=== PATIENT | female | born 2000 | race African-American/Black ===

== ENCOUNTER 2021-06-02 18:28 | Inpatient (IN) | payer OTHER ==
[~2021-06-02] VITALS: Ht 162.6 cm; Wt 107.5 kg
[2021-06-02] MEDS ORDERED: METHYLPREDNISOLONE SOD SUCC 125 MG/2 ML VIAL IV STA (18:40)
[2021-06-02] MEDS ORDERED: IPRATROPIUM BROMIDE (0.02%) 0.5MG/2.5ML NEB HHN STA (18:40)
[2021-06-02] MEDS ORDERED: ALBUTEROL (0.083%) 2.5MG/3ML NEB HHN STA (18:40)
[2021-06-02] MEDS ORDERED: LEVOFLOXACIN 750MG PREMIX 150 ML IV STA (18:40)
[2021-06-02] MEDS ORDERED: VANCOMYCIN 1 G PREMIX 200 ML IV ONE (18:45)
[2021-06-02 19:37] LABS: BASOPHILS % 0.5 % (0.0-2.0); HEMATOCRIT. 39.2 % (36.0-48.0); HEMOGLOBIN. 12.8 g/dL (12.0-16.0); LYMPHOCYTES % 24.2 % (20.0-50.0); MEAN CORPUSCULAR VOLUME 64.2 fL (81.0-99.0); MEAN PLATELET VOLUME 8.9 fl (7.4-10.4); MONOCYTES % 11.4 % (2.0-8.0); NEUTROPHILS % 63.9 % (40.0-76.0); PLATELET 292 x1000/uL (130-400); RED BLOOD CELL COUNT 6.11 mill/uL (4.2-5.4); RED CELL DISTRIBUTION WIDTH 16.6 % (11.6-14.6)
[2021-06-02 19:43] LABS: CHLORIDE 101 mEq/L (98-107)
[2021-06-02] MEDS ORDERED: MORPHINE SULFATE 4 MG/ML CPJ (NOT FOR IM USE) IV ONE (20:00)
[2021-06-02 20:51] LABS: PLATELET ESTIMATE NORMAL
[2021-06-03] VITALS (7 sets, daily range): BP systolic 89–134; BP diastolic 58–80
[2021-06-03] MEDS ORDERED: HYDROCODONE/ACETAMINOPHEN 5/325MG TABLET PO PRN (00:45)
[2021-06-03] MEDS ORDERED: CLONIDINE 0.1MG TABLET PO PRN (00:45)
[2021-06-03] MEDS: ACETAMINOPHEN 325MG TABLET PO PRN (01:06)
[2021-06-03] MEDS: ALBUTEROL 6.7GM HFA INHALER ORI SCH ×5 (04:10→21:19)
[2021-06-03 07:14] LABS: BASOPHILS % 0.4 % (0.0-2.0); HEMATOCRIT. 34.5 % (36.0-48.0); HEMOGLOBIN. 11.2 g/dL (12.0-16.0); LYMPHOCYTES % 34.2 % (20.0-50.0); MEAN CORPUSCULAR HEMOGLOBIN 20.6 pg (28.0-32.0); MEAN CORPUSCULAR VOLUME 63.7 fL (81.0-99.0); MEAN PLATELET VOLUME 8.6 fl (7.4-10.4); MONOCYTES % 12.2 % (2.0-8.0); NEUTROPHILS % 53.2 % (40.0-76.0); PLATELET 374 x1000/uL (130-400); RED BLOOD CELL COUNT 5.42 mill/uL (4.2-5.4); RED CELL DISTRIBUTION WIDTH 16.8 % (11.6-14.6)
[2021-06-03 07:47] LABS: CHLORIDE 102 mEq/L (98-107)
[2021-06-03] MEDS ORDERED: NALOXONE HCL 0.4MG/ML VIAL IV PRN (08:45)
[2021-06-03] MEDS: ENOXAPARIN 30MG/0.3ML SYR SUBCUT SCH ×2 (09:43→21:18)
[2021-06-03] MEDS: BENZONATATE 100MG CAPSULE PO SCH ×2 (09:43→16:26)
[2021-06-03] MEDS: FAMOTIDINE 20MG TABLET PO SCH ×2 (09:43→16:26)
[2021-06-03] MEDS: DEXAMETHASONE 10 MG/ML VIAL IV SCH (09:44)
[2021-06-03] MEDS: CEFTRIAXONE 1,000 MG in DEXTROSE 5% WATER 50 ML IV SCH (09:44)
[2021-06-03] MEDS ORDERED: CEFTRIAXONE 1 G PREMIX 50 ML IV SCH (10:00)
[2021-06-03] MEDS: AZITHROMYCIN 500 MG in DEXT 5% WATER 250 ML IV SCH (10:34)
[2021-06-04] VITALS: BP 156/72
[2021-06-04] MEDS: ALBUTEROL 6.7GM HFA INHALER ORI SCH ×6 (00:32→21:15)
[2021-06-04 04:00] VITALS: BP 145/66
[2021-06-04 08:00] VITALS: BP 109/64
[2021-06-04] MEDS: CEFTRIAXONE 1,000 MG in DEXTROSE 5% WATER 50 ML IV SCH (08:08)
[2021-06-04] MEDS: ENOXAPARIN 30MG/0.3ML SYR SUBCUT SCH ×2 (08:09→21:15)
[2021-06-04] MEDS: DEXAMETHASONE 10 MG/ML VIAL IV SCH (08:09)
[2021-06-04] MEDS: BENZONATATE 100MG CAPSULE PO SCH ×2 (08:09→16:16)
[2021-06-04] MEDS: FAMOTIDINE 20MG TABLET PO SCH ×2 (08:09→16:16)
[2021-06-04] MEDS: AZITHROMYCIN 500 MG in DEXT 5% WATER 250 ML IV SCH (09:59)
[2021-06-04 12:00] VITALS: BP 114/66
[2021-06-04 16:00] VITALS: BP 120/74
[2021-06-04 20:00] VITALS: BP 121/47
[2021-06-05] MEDS: ALBUTEROL 6.7GM HFA INHALER ORI SCH ×6 (00:23→20:45)
[2021-06-05 00:28] VITALS: BP 107/50
[2021-06-05 04:00] VITALS: BP 100/46
[2021-06-05 08:00] VITALS: BP 99/50
[2021-06-05] MEDS: FAMOTIDINE 20MG TABLET PO SCH ×2 (08:33→17:46)
[2021-06-05] MEDS: CEFTRIAXONE 1,000 MG in DEXTROSE 5% WATER 50 ML IV SCH (08:33)
[2021-06-05] MEDS: DEXAMETHASONE 10 MG/ML VIAL IV SCH (08:33)
[2021-06-05] MEDS: AZITHROMYCIN 500 MG in DEXT 5% WATER 250 ML IV SCH (08:33)
[2021-06-05] MEDS: ENOXAPARIN 30MG/0.3ML SYR SUBCUT SCH ×2 (08:34→20:45)
[2021-06-05] MEDS: BENZONATATE 100MG CAPSULE PO SCH ×2 (10:53→17:46)
[2021-06-05 12:00] VITALS: BP 100/51
[2021-06-05] MEDS ORDERED: DEXTROSE 50% WATER 50ML SYRINGE IV PRN (15:45)
[2021-06-05 16:00] VITALS: BP 97/45
[2021-06-05] MEDS: BLOOD SUGAR DIAGNOSTIC STRIP TEST SCH ×2 (17:47→20:38)
[2021-06-05] MEDS: INSULIN LISPRO 100 UNITS/ML SUBCUT SCH ×2 (17:49→20:38)
[2021-06-05 20:00] VITALS: BP 107/77
[2021-06-05] MEDS: GUAIFENESIN 600MG ER TABLET PO SCH (20:45)
[2021-06-05] MEDS: ACETAMINOPHEN 325MG TABLET PO PRN (20:58)
[2021-06-05 21:16] LABS: CHLORIDE 108 mEq/L (98-107)
[2021-06-06] MEDS: ALBUTEROL 6.7GM HFA INHALER ORI SCH ×7 (00:50→23:32)
[2021-06-06 00:57] VITALS: BP 114/67
[2021-06-06 04:00] VITALS: BP 98/79
[2021-06-06] MEDS: BLOOD SUGAR DIAGNOSTIC STRIP TEST SCH ×4 (06:35→19:56)
[2021-06-06] MEDS: CEFTRIAXONE 1,000 MG in DEXTROSE 5% WATER 50 ML IV SCH (07:29)
[2021-06-06 08:00] VITALS: BP 99/50
[2021-06-06] MEDS: INSULIN LISPRO 100 UNITS/ML SUBCUT SCH ×4 (08:10→19:56)
[2021-06-06] MEDS: BENZONATATE 100MG CAPSULE PO SCH ×2 (08:32→17:46)
[2021-06-06] MEDS: ENOXAPARIN 30MG/0.3ML SYR SUBCUT SCH ×2 (08:32→20:01)
[2021-06-06] MEDS: FAMOTIDINE 20MG TABLET PO SCH ×2 (08:32→17:46)
[2021-06-06] MEDS: AZITHROMYCIN 500 MG in DEXT 5% WATER 250 ML IV SCH (08:33)
[2021-06-06] MEDS: DEXAMETHASONE 10 MG/ML VIAL IV SCH (08:33)
[2021-06-06] MEDS: GUAIFENESIN 600MG ER TABLET PO SCH ×2 (08:33→20:00)
[2021-06-06 16:00] VITALS: BP 124/51
[2021-06-06 20:00] VITALS: BP 107/40
[2021-06-07] VITALS: BP 105/34
[2021-06-07] MEDS: ALBUTEROL 6.7GM HFA INHALER ORI SCH ×4 (03:32→18:06)
[2021-06-07 04:00] VITALS: BP 99/51
[2021-06-07] MEDS: BLOOD SUGAR DIAGNOSTIC STRIP TEST SCH ×2 (07:40→13:30)
[2021-06-07 08:00] VITALS: BP 101/53
[2021-06-07] MEDS: INSULIN LISPRO 100 UNITS/ML SUBCUT SCH ×2 (08:10→13:10)
[2021-06-07] MEDS: CEFTRIAXONE 1,000 MG in DEXTROSE 5% WATER 50 ML IV SCH (09:08)
[2021-06-07] MEDS: AZITHROMYCIN 500 MG in DEXT 5% WATER 250 ML IV SCH (09:08)
[2021-06-07] MEDS: GUAIFENESIN 600MG ER TABLET PO SCH ×2 (09:08→20:25)
[2021-06-07] MEDS: FAMOTIDINE 20MG TABLET PO SCH ×2 (09:08→18:06)
[2021-06-07] MEDS: DEXAMETHASONE 10 MG/ML VIAL IV SCH (09:15)
[2021-06-07] MEDS: ENOXAPARIN 30MG/0.3ML SYR SUBCUT SCH ×2 (09:15→20:25)
[2021-06-07] MEDS: BENZONATATE 100MG CAPSULE PO SCH ×2 (09:15→18:05)
[2021-06-07 12:00] VITALS: BP 101/55
[2021-06-07 16:00] VITALS: BP 101/44
[2021-06-07 20:00] VITALS: BP 121/51
[2021-06-08] VITALS: BP 114/47
[2021-06-08 00:46] LABS: EOSINOPHILS % 0.1 % (0.0-5.0); HEMATOCRIT. 33.6 % (36.0-48.0); LYMPHOCYTES % 10.6 % (20.0-50.0); MEAN CORPUSCULAR HEMOGLOBIN 20.9 pg (28.0-32.0); MONOCYTES % 12.8 % (2.0-8.0); NEUTROPHILS % 76.5 % (40.0-76.0); PLATELET 611 x1000/uL (130-400); RED BLOOD CELL COUNT 5.26 mill/uL (4.2-5.4); RED CELL DISTRIBUTION WIDTH 16.9 % (11.6-14.6)
[2021-06-08 01:08] LABS: CHLORIDE 107 mEq/L (98-107)
[2021-06-08 03:57] VITALS: BP 108/46
[2021-06-08 08:00] VITALS: BP 112/49
[2021-06-08] MEDS: ALBUTEROL 6.7GM HFA INHALER ORI SCH ×5 (08:00→23:32)
[2021-06-08] MEDS: DEXAMETHASONE 10 MG/ML VIAL IV SCH (08:59)
[2021-06-08] MEDS: GUAIFENESIN 600MG ER TABLET PO SCH ×2 (08:59→21:00)
[2021-06-08] MEDS: BENZONATATE 100MG CAPSULE PO SCH ×2 (08:59→17:00)
[2021-06-08] MEDS: ENOXAPARIN 30MG/0.3ML SYR SUBCUT SCH ×2 (08:59→21:00)
[2021-06-08] MEDS: FAMOTIDINE 20MG TABLET PO SCH ×2 (08:59→17:00)
[2021-06-08 12:00] VITALS: BP 102/48
[2021-06-08 15:47] LABS: BG BASE EXCESS 1.8 mmol/L (-2.0-2.0); BG CARBOXYHEMOGLOBIN 0.4 % (0.5-1.5); BG DEOXYHEMOGLOBIN 0.7 % (0.0-5.0); BG FRACTION INSPIRED OXYGEN 100; BG HCO3 ACT 25.5 mmol/L (22.0-26.0); BG METHEMOGLOBIN 0.5 % (0.0-1.5); BG OXYGEN SATURATION 99.3 % (92.0-98.5); BG OXYHEMOGLOBIN 98.4 % (94.0-97.0); BG PCO2 36.7 mmHg (35.0-45.0); BG PO2 160.3 mmHg (75.0-100.0); BG SAMPLE SITE LEFT RADIAL; BG TOTAL HEMOGLOBIN 11.9 g/dL (12.0-18.0); BG VENT MODE MASK - NRB
[2021-06-08 16:00] VITALS: BP 100/45
[2021-06-08 20:39] VITALS: BP 108/42
[2021-06-09] VITALS: BP 113/49
[2021-06-09 04:00] VITALS: BP 111/40
[2021-06-09] MEDS: ALBUTEROL 6.7GM HFA INHALER ORI SCH ×3 (04:00→12:00)
[2021-06-09 08:00] VITALS: BP 116/44
[2021-06-09] MEDS: GUAIFENESIN 600MG ER TABLET PO SCH (08:37)
[2021-06-09] MEDS: BENZONATATE 100MG CAPSULE PO SCH (08:37)
[2021-06-09] MEDS: FAMOTIDINE 20MG TABLET PO SCH (08:37)
[2021-06-09] MEDS: ENOXAPARIN 30MG/0.3ML SYR SUBCUT SCH (08:37)
[2021-06-09] MEDS: DEXAMETHASONE 10 MG/ML VIAL IV SCH (08:38)
[2021-06-09 12:57] VITALS: BP 115/46
== END 2021-06-09 13:38 | disposition home or self-care (01) | DRG 871 ==
LOC: ER 18:28 → ENRESERV 23:10 → 7WST 06-03 00:05
PROVIDERS: ADMIT Internal Medicine; ATTEND Internal Medicine
DX: A41.89 Other specified sepsis (principal); J96.01 Acute respiratory failure with hypoxia; U07.1 COVID-19; J12.82 Pneumonia due to coronavirus disease 2019; E44.0 Moderate protein-calorie malnutrition; Z68.41 Body mass index [BMI] 40.0-44.9, adult; E66.9 Obesity, unspecified; F17.210 Nicotine dependence, cigarettes, uncomplicated; R74.01 Elevation of levels of liver transaminase levels; Z71.3 Dietary counseling and surveillance
CPT/HCPCS: 36415; 36600; 71045; 80048; 80053; 82375; 82728; 82805; 82962; 83036; 83605; 83615; 83880; 84145; 84484; 85025; 85379; 86140; 87426; 93005; 94644; 99285; J0456; J0696; J1100; J1650; J1956; J2270; J2930; J3370; J7060

== ENCOUNTER 2023-03-21 22:56 | Emergency (ER) | payer OTHER ==
[~2023-03-21] VITALS: Ht 170.2 cm; Wt 77.0 kg
[2023-03-21 23:02] VITALS: BP 151/97
[2023-03-21] MEDS ORDERED: HALOPERIDOL LACTATE 5MG/ML VIAL IM ONE (23:15)
[2023-03-21] MEDS ORDERED: LORAZEPAM 2MG/ML CPJ IM ONE (23:15)
== END 2023-03-22 01:40 | disposition home or self-care (01) ==
LOC: ER 22:56
DX: F10.10 Alcohol abuse, uncomplicated (principal); Y08.89XA Assault by other specified means, initial encounter; Y93.89 Activity, other specified; Y92.89 Other specified places as the place of occurrence of the external cause; Y99.8 Other external cause status
CPT/HCPCS: 70450; 72125; 81025; 96372; 99285; J1630; J2060